=== PATIENT | female | born 1985 | race Caucasian/White ===

== ENCOUNTER 2017-11-17 14:18 | Inpatient (IN) | payer SELFPAY ==
--- NOTE | 2017-11-17 15:55 | EDPHY ---
H & P Time Seen by Provider: 11/17/17 15:33 HPI/ROS: CHIEF COMPLAINT: arm swelling HISTORY OF PRESENT ILLNESS: Patient is a 32-year-old female who uses methamphetamine the presents emergency department with right arm swelling and redness. The patient states she normally injects into her lower arm. However, over the past 5 days she has noticed increased swelling of her right proximal arm. It is red. It is painful to touch. She denies fevers or chills. No nausea or vomiting. REVIEW OF SYSTEMS: My complete review of systems is negative except as mentioned in the HPI. Past Medical/Surgical History: Includes methamphetamine abuse, asthma Past surgical history: Gastric bypass, cholecystectomy Social history: Patient reports injecting methamphetamine Smoking Status: Never smoked Physical Exam: 37, 98/56, 92, 16, 97% GENERAL: No acute distress, alert. HEENT: Eyes normal to inspection, no signs of dehydration. NECK: No thyromegaly, no lymphadenopathy, supple. RESPIRATORY: Clear to auscultation bilaterally, no rales, rhonchi or wheezing. CVS: Regular rate and rhythm, no rubs, murmurs, or gallops. ABDOMEN: Soft, nontender. BACK: Normal to inspection, no CVA tenderness. SKIN: CC right arm exam. Otherwise normal color, no rash, warm, dry. No pallor. EXTREMITIES: Patient has redness of her right brachium. There is palpable mass at the base of her humerus. No palpable fluctuance. No forearm involvement. It is warm to touch. Neurovascular intact distally. There is a small scab on the forearm. This does not appear erythematous or tender. NEURO/PSYCH: Alert and oriented x3, normal mood and affect, normal motor sensory exam. No obvious cranial nerve deficit. Constitutional: Initial Vital Signs Temperature (C) 37 C 11/17/17 14:34 Heart Rate 92 11/17/17 14:34 Respiratory Rate 16 11/17/17 14:34 Blood Pressure 98/56 L 11/17/17 14:34 O2 Sat (%) 97 11/17/17 14:34 O2 Delivery Mode Room Air Allergies/Adverse Reactions: amoxicillin Allergy (Verified 11/17/17 14:34) doxycycline Allergy (Verified 11/17/17 14:34) Penicillins Allergy (Verified 11/17/17 14:34) Home Medications: Medication Instructions Recorded NK [No Known Home Meds] 11/17/17 Medical Decision Making ED Course/Re-evaluation: In the emergency department I discussed possible etiologies with the patient. I answered all her questions. IV was placed. Laboratory studies were obtained. Patient was given Rocephin 1 g IV and vancomycin 1 g IV. I discussed case with Dr. Nick Perez from General surgery. He will consult and evaluate the patient. Discussed case with Dr. Nick Perez. He was in the emergency department to evaluate the patient. He recommended admission. He also recommended ultrasound. These were ordered. I discussed the plan with the patient. I answered all her questions. Lactic acid is 0.8. Differential Diagnosis: My differential includes but is not limited to cellulitis, abscess, bacteremia, sepsis, methamphetamine abuse, dehydration, electrolyte abnormality - Data Points Laboratory Results: 11/17/17 11/17/17 16:27 16:26 POC Hgb 10.2 gm/dL L gm/dL (12.6-16.3) POC Hct 30 % L % (38-47) VBG Lactic Acid 0.8 mmol/L mmol/L (0.7-2.1) POC Sodium 140 mEq/L mEq/L (135-145) POC Potassium 3.1 mEq/L L mEq/L (3.3-5.0) POC Chloride 105 mEq/L mEq/L (97-110) POC BUN 8 mg/dL mg/dL (7-23) POC Creatinine 0.4 mg/dL L mg/dL (0.6-1.0) POC Glucose 82 mg/dL mg/dL (70-100) Point of Care Test Results: 11/17/17 16:27 POC Sodium 140 POC Potassium 3.1 L POC Chloride 105 POC BUN 8 POC Creatinine 0.4 L POC Glucose 82 Departure - Departure Disposition: [facility] [place] Inpatient Acute Clinical Impression: Abscess Cellulitis Qualifiers: Site of cellulitis: extremity Site of cellulitis of extremity: upper extremity Laterality: right Qualified Code(s): L03.113 - Cellulitis of right upper limb Condition: Good
[2017-11-17] MEDS ORDERED: VANCOMYCIN HCL/NORMAL SALINE 250 ML IV ONE (15:57)
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
[2017-11-17] MEDS: LR 1,000 ML IV SCH (20:10)
--- NOTE | 2017-11-17 22:03 | POSTOPPROG ---
Post Op Note Date of Operation: 11/17/17 Surgeon: Nick Perez [employer]ios[employer] Sales Representative: [employer]train Anesthesia: GET(General Endotracheal) Pre-op Diagnosis: acute appy Post-op Diagnosis: same Indication: acute appy Procedure: lap appy Findings: acute appy Inf/Abcess present in the surg proc area at time of surgery?: No EBL: Minimal
[2017-11-17] MEDS ORDERED: PROPOFOL 200 MG/20 ML VIAL ONE (22:59)
[2017-11-17] MEDS ORDERED: fentaNYL 100 MCG/2 ML INJ ONE (22:59)
[2017-11-17] MEDS ORDERED: LIDOCAINE 2% 100 MG/5 ML SYR ONE (22:59)
[2017-11-17] MEDS ORDERED: BUPIVACAINE 0.5% 30 ML SDV ONE (23:01)
--- NOTE | 2017-11-17 23:09 | PDANEPAE ---
ANE History of Present Illness R arm abscess here for I+D ANE Past Medical History - Pulmonary History Hx Asthma/Reactive Airway Disease: Yes Hx Oxygen in Use at Home: No Hx Sleep Apnea: No - Endocrine History Hx Diabetes: No - Neurological & Psychiatric Hx Hx Neurological and Psychiatric Disorders: Yes Neurological / Psychiatric History Comment: Homeless, h/o IVDA, heroin/meth ANE Review of Systems Review of Systems: - Exercise capacity Exercise capacity: >=4 METS ANE Patient History - Allergies Allergies/Adverse Reactions: amoxicillin Allergy (Verified 11/17/17 14:34) doxycycline Allergy (Verified 11/17/17 14:34) Penicillins Allergy (Verified 11/17/17 14:34) - Home Medications Home Medications: NK [No Known Home Meds] 11/17/17 [Last Taken Unknown] - NPO status NPO Status: no food or drink >8 hours NPO Since - Liquids (Date): 11/17/17 NPO Since - Liquids (Time): 20:35 NPO Since - Solids (Date): 11/13/17 NPO Since - Solids (Time): 00:00 - Anes Hx Anes Hx: no prior problems - Smoking Hx Smoking Status: Never smoked - Family Anes Hx Family Anes Hx: none ANE Labs/Vital Signs - Vital Signs Blood Pressure: 102/53 Heart Rate: 82 Respiratory Rate: 14 O2 Sat (%): 93 Height: 157.48 cm Weight: 81.647 kg ANE Physical Exam - Airway Neck exam: FROM Mallampati Score: Class 2 Mouth exam: normal dental/mouth exam - Pulmonary Pulmonary: no respiratory distress, clear to auscultation - Cardiovascular Cardiovascular: regular rate and rhythym, no murmur, rub, or gallop - ASA Status ASA Status: III ANE Anesthesia Plan Anesthesia Plan: GA w LMA
[2017-11-17] MEDS ORDERED: MIDAZOLAM 2 MG/2 ML VIAL ONE ×2 (23:21→23:22)
[2017-11-17] MEDS ORDERED: MIDAZOLAM 2 MG/2 ML VIAL IVP ONE (23:22)
[2017-11-18] MEDS ORDERED: NALOXONE HCL 0.4 MG/ML INJ IVP PRN (00:24)
[2017-11-18] MEDS ORDERED: ACETAMINOPHEN 500 MG TAB PO PRN (00:24)
[2017-11-18] MEDS ORDERED: PROMETHAZINE HCL 25 MG/ML INJ IVP PRN (00:24)
[2017-11-18] MEDS ORDERED: ONDANSETRON 4 MG/2 ML VIAL IVP PRN (00:24)
[2017-11-18] MEDS ORDERED: fentaNYL 100 MCG/2 ML INJ IVP PRN (00:24)
--- NOTE | 2017-11-18 00:33 | POSTOPPROG ---
Post Op Note Date of Operation: 11/18/17 Surgeon: Nick Perez Pre-op Diagnosis: arm abscess Post-op Diagnosis: cellulitis Indication: cellulitis r arm, possible abscess Procedure: exam under anesthesia, incision r arm Findings: no abscess Inf/Abcess present in the surg proc area at time of surgery?: No
--- NOTE | 2017-11-18 00:47 | GOP ---
[f rep st] OPERATIVE REPORT DATE OF OPERATION: SURGEON: Nick Perez MD PREOPERATIVE DIAGNOSIS: Cellulitis, right arm; possible abscess. POSTOPERATIVE DIAGNOSIS: Cellulitis, right arm. PROCEDURE PERFORMED: Examination under anesthesia; incision, left arm. FINDINGS: INDICATIONS: 32-year-old female with cellulitis, pain, left arm; leukocytosis. An ultrasound prior to the procedure by the radiologist was suggestive of an abscess with free fluid. This was marked by the radiologist. DESCRIPTION OF PROCEDURE: Patient was taken to the operating room. General anesthesia. The arm was scrubbed with ChloraPrep, draped in the usual sterile fashion. Palpation in the area marked by the radiologist on the volar upper arm was unimpressive. Ultrasound was repeated in the operating room a nd no obvious abscess seen in this area. Somewhat more medial to this, there was a palpable finding, and ultrasound showed an irregularity there consistent with an abscess. This area was aspirated and eventually an incision made but no abscess encountered. The short incision was closed with 4-0 Vicr yl and Dermabond. Ultrasound again in the operating room failed to show any obvious fluctuance. The refore, the procedure was terminated. Patient tolerated the operation well. /[id number]/MODL
[2017-11-18] MEDS ORDERED: IBUPROFEN 600 MG TAB PO PRN (02:02)
[2017-11-18] MEDS ORDERED: VANCOMYCIN 1.25 GM in NS 250 ML IV SCH (05:00)
[2017-11-18] MEDS: LR 1,000 ML IV SCH (05:14)
--- NOTE | 2017-11-18 06:23 | SOAPPROG ---
SOAP Progress Note Assessment/Plan: Assessment: Plan: Subjective: vss, af arm tender, contiues with erythema. no abscess found at surgery- will re image in 1-2 days if erythema persisits. Objective: Vital Signs Temp Pulse Resp BP Pulse Ox 36.6 C 84 93 H 123/65 H 96 11/18/17 00:35 11/18/17 02:49 11/18/17 02:49 11/18/17 02:49 11/18/17 02:00 11/17/17 11/18/17 11/19/17 05:59 05:59 05:59 Intake Total 1800 Balance 1800 ICD10 Worksheet Patient Problems: Problems Problem Status Onset Abscess Acute Cellulitis Acute
--- NOTE | 2017-11-18 12:04 | ASMTCMCOM ---
CM Note CM Note Notes: Pt admitted with cellulitis right arm. Pt is homeless and is a meth user. She is currrently on IV ABX. DC needs unclear. CM will continue to follow. Date Signed: 11/18/2017 12:03 PM Electronically Signed By:Imelda Manning LCSW
[2017-11-18] MEDS ORDERED: LIDOCAINE 1% 300 MG/30 ML SDV ONE (13:56)
[2017-11-18] MEDS ORDERED: ONDANSETRON 4 MG/2 ML VIAL ONE (14:32)
--- NOTE | 2017-11-18 14:37 | PDRADPN ---
Radiology Procedure Note Date of Procedure: 11/18/17 Radiologist: Macario Ho Anesthesia: Local (Specify) Pre-op Diagnosis: infection Post-op Diagnosis: same Indication: no iv access Procedure: LUE DL PICC Finding(s): Patent LUE basilic. 40cm DL PICC. Tip at mid SVC. Ok to use. Inf/Abcess present in the surg proc area at time of surgery?: No EBL: Minimal Complications: none
[2017-11-18] MEDS ORDERED: ONDANSETRON 4 MG/2 ML VIAL IVP ONE (14:38)
--- NOTE | 2017-11-18 15:07 | PDMN ---
Medical Necessity Medical necessity: Pt meets INPT criteria per MD and [facility] M-70 Cellulitis (with hx IV meth use; est. LOS >2 MN).
[2017-11-18] MEDS: cefTRIAXone 2 GM in STERILE WATER INJ 20 ML IV SCH (15:26)
[2017-11-18] MEDS: VANCOMYCIN 1.25 GM in NS 250 ML IV SCH (15:26)
[2017-11-19] MEDS: VANCOMYCIN 1.25 GM in NS 250 ML IV SCH ×2 (02:33→15:23)
[2017-11-19] MEDS: cefTRIAXone 2 GM in STERILE WATER INJ 20 ML IV SCH (09:20)
[2017-11-19] MEDS ORDERED: ALBUTEROL 3 ML DEYVIAL IH PRN (09:28)
--- NOTE | 2017-11-19 09:33 | SOAPPROG ---
SOAP Progress Note Assessment/Plan: Assessment: Plan: 11/19/17 09:32 COMPLAINS OF ARM PAIN- SLEEPS MOST OF THE TIME ARM STILL RED, MAY BE FORMING A PALPABLE ABSCESS. STILL AFEBRILE WILL CHECK MIGUEL ANGEL, LIKELREEXPORE IF ABSCESS SEEMS DEFINITIVE. Objective: Vital Signs Temp Pulse Resp BP Pulse Ox 36.9 C 71 20 112/58 L 93 11/19/17 08:02 11/19/17 08:02 11/19/17 08:02 11/19/17 08:02 11/19/17 08:02 Laboratory Results 11/18/17 21:00 11/18/17 15:15 11/18/17 11/19/17 11/20/17 05:59 05:59 05:59 Intake Total 1800 2207 Balance 1800 2207 ICD10 Worksheet Patient Problems: Problems Problem Status Onset Abscess Acute Cellulitis Acute
[2017-11-20] MEDS: VANCOMYCIN 1.25 GM in NS 250 ML IV SCH ×4 (03:44→20:06)
--- NOTE | 2017-11-20 08:09 | SOAPPROG ---
SOAP Progress Note Assessment/Plan: Assessment: Plan: 11/19/17 09:32 COMPLAINS OF ARM PAIN- SLEEPS MOST OF THE TIME ARM STILL RED, MAY BE FORMING A PALPABLE ABSCESS. STILL AFEBRILE WILL CHECK MIGUEL ANGEL, LIKELREEXPORE IF ABSCESS SEEMS DEFINITIVE. Subjective: still with arm pain still with bright erythema, possibly receding slightly. possible fluctuant area, although not deffinitive. will have ulatrasound done again, with aspiration if pus seen. if unsuccesful could explore again, but i am not entirely sure there is drainable pus. if there is , it may be intramuscular. Objective: Vital Signs Temp Pulse Resp BP Pulse Ox 37 C 73 16 114/60 92 11/20/17 05:09 11/20/17 05:09 11/20/17 05:09 11/20/17 05:09 11/20/17 05:09 Laboratory Results 11/18/17 21:00 11/18/17 15:15 11/19/17 11/20/17 11/21/17 05:59 05:59 05:59 Intake Total 2207 1740 Balance 2207 1740 ICD10 Worksheet Patient Problems: Problems Problem Status Onset Abscess Acute Cellulitis Acute
[2017-11-20] MEDS ORDERED: ACETAMINOPHEN 325 MG TAB PO PRN (08:23)
[2017-11-20] MEDS: cefTRIAXone 2 GM in STERILE WATER INJ 20 ML IV SCH (08:47)
[2017-11-20] MEDS ORDERED: LIDOCAINE 1% 300 MG/30 ML SDV ONE (10:09)
[2017-11-20] MEDS: HYDROCODONE/APAP 5/325 TAB PO PRN (17:32)
[2017-11-20] MEDS: LR 1,000 ML IV SCH (22:21)
[2017-11-21] MEDS: VANCOMYCIN 1.25 GM in NS 250 ML IV SCH ×3 (03:44→21:11)
--- NOTE | 2017-11-21 06:42 | SOAPPROG ---
SOAP Progress Note Assessment/Plan: Assessment: Plan: 11/19/17 09:32 COMPLAINS OF ARM PAIN- SLEEPS MOST OF THE TIME ARM STILL RED, MAY BE FORMING A PALPABLE ABSCESS. STILL AFEBRILE WILL CHECK MIGUEL ANGEL, LIKELREEXPORE IF ABSCESS SEEMS DEFINITIVE. Subjective: hd 5 cellulits of rue. less erythema, but still present. no fluctuance. induration just above elbow. pt has less pain. notes increased rom. ultrasound yesterday shows no drainable fluid. access: slowly improving clellulitis or myosisits or lymphadenitis of rue, no organism known, on rocephrin and vanco. pt is liekly immunocompromised form homelsessness and meth use. Objective: Vital Signs Temp Pulse Resp BP Pulse Ox 37.1 C 66 16 113/64 96 11/21/17 05:59 11/21/17 05:59 11/21/17 05:59 11/21/17 05:59 11/21/17 05:59 Laboratory Results 11/18/17 21:00 11/21/17 03:03 11/20/17 11/21/17 11/22/17 05:59 05:59 05:59 Intake Total 1740 1550 Balance 1740 1550 ICD10 Worksheet Patient Problems: Problems Problem Status Onset Abscess Acute Cellulitis Acute
[2017-11-21] MEDS: HYDROCODONE/APAP 5/325 TAB PO PRN ×2 (10:03→19:27)
[2017-11-21] MEDS: cefTRIAXone 2 GM in STERILE WATER INJ 20 ML IV SCH (10:05)
--- NOTE | 2017-11-21 16:23 | ASMTCMCOM ---
CM Note CM Note Notes: Chart reviewed. Per MD note some improvement in cellulitis. No ID consult. Patient met with [employer] and reports her grandparent get her medical bills but she does not want to call them. No current needs identified. CM to follow. Plan: TBD Date Signed: 11/21/2017 04:22 PM Electronically Signed By:Yessenia Mas RN
--- NOTE | 2017-11-21 16:50 | ASMTCMCOM ---
CM Note CM Note Notes: Per patient she has no family she intend to speak to other than her street family in [place]. She will need clothing and a bus token when she is medically cleared for discharge. Plan: DC Independ[facility] to [facility] Date Signed: 11/21/2017 04:49 PM Electronically Signed By:Yessenia Mas RN
[2017-11-22] MEDS: ALTEPLASE 2 MG VIAL IVP PRN ×2 (03:48→03:54)
[2017-11-22] MEDS: HYDROCODONE/APAP 5/325 TAB PO PRN ×3 (03:49→20:52)
[2017-11-22] MEDS: VANCOMYCIN 1.25 GM in NS 250 ML IV SCH ×2 (05:04→12:49)
[2017-11-22] MEDS: cefTRIAXone 2 GM in STERILE WATER INJ 20 ML IV SCH (08:14)
--- NOTE | 2017-11-22 10:08 | SOAPPROG ---
SOAP Progress Note Assessment/Plan: Assessment: Plan: 11/19/17 09:32 COMPLAINS OF ARM PAIN- SLEEPS MOST OF THE TIME ARM STILL RED, MAY BE FORMING A PALPABLE ABSCESS. STILL AFEBRILE WILL CHECK MIGUEL ANGEL, LIKELREEXPORE IF ABSCESS SEEMS DEFINITIVE. Subjective: full rom, feels better arm with no erythema, no fluctuance. could dc tomorrow, although social circumstances poor- doubt she coould complete any outpt antibiotic regimen. ewill talk with social services assistant. Objective: Vital Signs Temp Pulse Resp BP Pulse Ox 36.8 C 55 L 17 101/62 94 11/22/17 07:25 11/22/17 07:25 11/22/17 07:25 11/22/17 07:25 11/22/17 07:25 Laboratory Results 11/18/17 21:00 11/21/17 03:03 11/21/17 11/22/17 11/23/17 05:59 05:59 05:59 Intake Total 1550 2040 Balance 1550 2040 ICD10 Worksheet Patient Problems: Problems Problem Status Onset Abscess Acute Cellulitis Acute
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
[2017-11-22] MEDS: VANCOMYCIN 1 GM in NS 250 ML IV SCH (20:52)
[2017-11-23] MEDS: VANCOMYCIN 1 GM in NS 250 ML IV SCH (04:31)
--- NOTE | 2017-11-23 08:49 | SOAPPROG ---
SOAP Progress Note Assessment/Plan: Assessment: Plan: 11/19/17 09:32 COMPLAINS OF ARM PAIN- SLEEPS MOST OF THE TIME ARM STILL RED, MAY BE FORMING A PALPABLE ABSCESS. STILL AFEBRILE WILL CHECK MIGUEL ANGEL, LIKELREEXPORE IF ABSCESS SEEMS DEFINITIVE. Objective: Vital Signs Temp Pulse Resp BP Pulse Ox 36.6 C 57 L 16 135/77 H 95 11/23/17 07:42 11/23/17 07:42 11/23/17 07:42 11/23/17 07:42 11/23/17 07:42 Laboratory Results 11/18/17 21:00 11/23/17 04:30 11/22/17 11/23/17 11/24/17 05:59 05:59 05:59 Intake Total 2040 400 Balance 2040 400 erythema gone, full rom, but persistant mass medially- unusual for uncomplicated cellulitis. feels like a soft tissue mass. will check mri prior to discharge on po antibiotics. ICD10 Worksheet Patient Problems: Problems Problem Status Onset Abscess Acute Cellulitis Acute
[2017-11-23] MEDS: HYDROCODONE/APAP 5/325 TAB PO PRN ×2 (09:04→18:41)
[2017-11-23] MEDS: cefTRIAXone 2 GM in STERILE WATER INJ 20 ML IV SCH (09:05)
[2017-11-23] MEDS ORDERED: GADOBUTROL 10 ML VIAL IVP ONE (11:12)
[2017-11-23] MEDS ORDERED: LORazepam 2 MG/ML INJ IVP ONE (11:45)
[2017-11-24] MEDS ORDERED: CEPHALEXIN 250 MG CAP PO SCH
[2017-11-24] MEDS: HYDROCODONE/APAP 5/325 TAB PO PRN (08:48)
[2017-11-24] MEDS: cefTRIAXone 2 GM in STERILE WATER INJ 20 ML IV SCH (08:48)
[2017-11-24 08:56] VITALS: BP 122/68
--- NOTE | 2017-11-24 09:09 | GDS ---
[f rep st] DISCHARGE SUMMARY PRESENT ILLNESS: The patient presents with significant cellulitis right upper extremity, just above the elbow. It was initially felt she might have an abscess and she was admitted by the Surgical serv ice. Multiple ultrasounds, including a limited exploration of the area in the operating room showed no actual abscess. At the time of discharge, all erythema has resolved, after being treated with van comycin and Rocephin. There is a residual firmness above the elbow and an MRI was done to ensure the re was no solid tissue mass that shows subcutaneous congestion of the fat, resolving phlegmon, etcete ra. Clinically, the patient has no reason for further exploration or drainage of this area. FINAL DIAGNOSIS: Cellulitis. OPERATION: Limited exploration, medial aspect, subcutaneous, right elbow. COMPLICATIONS: None. DISPOSITION: Discharged. MEDICATIONS: Keflex 250 mg, #28 given. FOLLOW UP: I have given the patient my contact information. Recommend she see me for followup in a week. However, given her homeless lifestyle and likely return to the [facility], she might fo llow up with another physician or not at all. /[id number]/MODL
== END 2017-11-24 10:04 | disposition home or self-care (01) | DRG 603 ==
LOC: F1N 18:01
PROVIDERS: ADMIT Surgery; ATTEND Surgery
PROC: 0JJV0ZZ Inspection of Upper Extremity Subcutaneous Tissue and Fascia, Open Approach (ICD-10-PCS; principal; 2017-11-18)
PROC: 02HV33Z Insertion of Infusion Device into Superior Vena Cava, Percutaneous Approach (ICD-10-PCS; 2017-11-18)
DX: L03.113 Cellulitis of right upper limb (principal); F15.10 Other stimulant abuse, uncomplicated; J45.909 Unspecified asthma, uncomplicated; Z88.0 Allergy status to penicillin; Z59.0 Homelessness
CPT/HCPCS: 82947-QW; 96365; A9585; C1751; J0696; J2001; J2060; J2250; J2270; J2405; J2704; J2997; J3010; J3370; J7613